=== PATIENT | female | born 1975 | race American Indian/Alaskan Native ===

== ENCOUNTER 2019-06-13 08:00 | Emergency (ER) | payer OTHER ==
[2019-06-13 14:25] VITALS: BP 148/88
== END 2019-06-13 14:55 | disposition home or self-care (01) ==
LOC: ED 08:00
DX: R42 Dizziness and giddiness (principal); H53.8 Other visual disturbances
CPT/HCPCS: 36415; 70450; 80053; 81001; 82962; 83735; 85025; 93005; 93010; 96361; 96374; 96375; 99285; J1885; J2405; J7030